=== PATIENT | male | born 2000 | race Caucasian/White ===

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

== ENCOUNTER → 2025-05-27 | Outpatient (CLI) | payer OTHER | LOC: LAB 12:15 → LAB SHORT 12:15 | DX: J02.9 Acute pharyngitis, unspecified (principal) | CPT/HCPCS: 87081 ==